=== PATIENT | male | born 1995 | race Caucasian/White ===

== ENCOUNTER 2020-09-06 23:53 | Inpatient (IN) | payer MEDICAID, SELFPAY ==
[~2020-09-06] VITALS: Ht 193 cm; Wt 105.7 kg
[~2020-09-06 23:53] MED LIST: DOXY100T2 PO
[2020-09-06 23:58] VITALS: BP_SYST 148
--- NOTE | 2020-09-07 | NUR ---
Patient to ER bed 4 to gown for evaluation. Side rails up.
--- NOTE | 2020-09-07 00:01 | NUR ---
Patient came with family. C/O abdominal pain, x today. Patient have abdominal pain 3 hours ago, on and off, vomitting. Hx Bowel Obstruction x 2 years ago (per patient). A/O,X4, lower abdominal pain, nausea, pain rate 8/10.
--- NOTE | 2020-09-07 00:11 | NUR ---
ER Dr. Hawkins at bedside examining patient.
[2020-09-07] MEDS ORDERED: NACL 0.9% 1,000 ML IV ONE (00:30)
[2020-09-07] MEDS ORDERED: MORPHINE 4 MG/ML INJ. SYRINGE IVP ONE (00:30)
[2020-09-07] MEDS ORDERED: MORPHINE 4 MG/ML INJ. SYRINGE ONE (01:02)
[2020-09-07 01:09] LABS: BILIRUBIN,URINE NEGATIVE (NEGATIVE); BLOOD, URINE NEGATIVE (NEGATIVE); CLARITY/URINE CLEAR (CLEAR); COLOR,URINE YELLOW (YELLOW); GLUCOSE,URINE NEGATIVE (NEGATIVE); KETONES,URINE NEGATIVE (NEGATIVE); LEUKOCYTE ESTERASE ,URINE NEGATIVE (NEGATIVE); NITRITE, URINE NEGATIVE (NEGATIVE); PROTEIN URINE NEGATIVE (NEGATIVE); UROBILINOGEN,URINE 0.2 (0.2-1.0)
[2020-09-07 01:29] LABS: CALCIUM 9.2 mg/dL (8.4-11.0); CREATININE 0.85 mg/dL (0.55-1.30); POTASSIUM 4.4 mmol/L (3.5-5.1)
[2020-09-07 01:35] LABS: ALBUMIN 4.1 g/dL (3.4-4.8); HEMATOCRIT 45.8 % (36-54); HEMOGLOBIN 15.3 g/dL (14.0-18.0); MEAN CORPUSCULAR HEMOGLOBIN 30 pg (27-31); MEAN CORPUSCULAR HGB CONC 33 % (32-36); MEAN CORPUSCULAR VOLUME 89 fL (79.0-98.0); NEUTROPHILS % (AUTO) 52.6 % (40.0-70.0); PLATELET COUNT (AUTO) 245 K/uL (130-430); RED BLOOD CELL COUNT(AUTO) 5.13 MIL/uL (4.2-6.2); RED CELL DISTRIBUTION WIDTH 13.5 % (9.0-15.0); TOTAL BILIRUBIN 0.2 mg/dL (0.0-1.0)
[2020-09-07 01:36] LABS: BASOPHILS # (AUTO) 0.1 K/uL (0.0-0.2); BASOPHILS % (AUTO) 1.1 % (0.0-2.0); EOSINOPHILS # (AUTO) 0.2 K/uL (0.0-0.4); EOSINOPHILS % (AUTO) 1.4 % (0.0-4.0); LYMPHOCYTES # (AUTO) 4.4 K/uL (1.0-5.5); LYMPHOCYTES % (AUTO) 36.7 % (20.5-51.5); MONOCYTES % (AUTO) 8.2 % (1.7-9.3); NEUTROPHILS # (AUTO) 6.3 K/uL (1.8-7.7)
[2020-09-07] MEDS ORDERED: MORPHINE 2 MG/ML INJ. SYRINGE IVP PRN (02:15)
[2020-09-07] MEDS ORDERED: ONDANSETRON HCL 4 MG/2 ML VIAL IVP PRN (02:15)
[2020-09-07] MEDS ORDERED: LR 1,000 ML IV ONE (02:15)
[2020-09-07] MEDS ORDERED: PIPERACILLIN/TAZO 3.375 GM in NS 50 ML IV ONE (02:15)
--- NOTE | 2020-09-07 02:29 | NUR ---
Swabs COVID-19 and send to lab.
[2020-09-07] MEDS ORDERED: PIPERACILLIN/TAZOBACTAM 3.375 GM/VIAL (ZOSYN) IV ONE (02:32)
--- NOTE | 2020-09-07 02:58 | NUR ---
Patient resting quietly. No acute distress noted. Vital signs within normal range.
--- NOTE | 2020-09-07 03:15 | NUR ---
CONSULTATION PAGED/CALLED Reason for Consultation: SMALL BOWEL OBSTRUCTION Person Who was Notified: ER SPOKE WITH DR WILLS Consulting Physician: DR CLARKE Game Protector Specialty: Ordering Physician: NICO
--- NOTE | 2020-09-07 03:18 | NUR ---
Patient will be admitted to care of Dr. Velazco. Admitted to M/S unit. Will go to room 108C. Belongings list completed. Complete and up to date summary report printed. SBAR report to be given at bedside with opportunity for questions.
[2020-09-07 03:24] VITALS: BP_SYST 132
--- NOTE | 2020-09-07 03:24 | NUR ---
ADMISSION NOTE Received patient from ER via gurney. Patient admitted with diagnosis of ABDOMINAL PAIN. Patient is awake, alert, oriented X 4. Patient oriented to hospital room, call light, toileting, pain management and safety-teach back done. Patient informed that OTIS will be HIS nurse and that their room number is 108C. Personal belongings checked and Belongings List documented. Call light within reach.
--- NOTE | 2020-09-07 03:50 | NUR ---
INITIAL NOTE PATIENT IS STABLE AND LAYING IN BED. PATIENT IS SLEEPY AT THIS TIME. PATIENT EDUCATED SURGICAL SPECIALIST LIGHT. PATIENT SUCCESSFULLY DEMONSTRATES USAGE OF CALL LIGHT. BED IS LOCKED AND LOWEST POSITION. PATIENT EDUCATED ON BED ALARM, PT REFUSED. FALL, SAFETY, ASPIRATION, AND RESPIRATORY PRECAUTIONS WILL BE IN PLACE THROUGHOUT THE SHIFT. PLAN OF CARE IS DISCUSSED WITH PATIENT.
--- NOTE | 2020-09-07 04:00 | NUR ---
PT IS STABLE AND SLEEPING IN BED. NO S/S OF VOMITING NOTED. NO S/S OF RESPIRATORY DISTRESS NOTED. CALL LIGHT IN REACH.
--- NOTE | 2020-09-07 06:47 | NUR ---
CLOSING NOTE PATIENT IS STABLE AND RESTING IN BED. NO S/S OF RESPIRATORY DISTRESS NOTED. CALL LIGHT IN REACH. BED IS LOCKED, ALARMED, AND AT THE LOWEST POSITION. FALL, SAFETY, ASPIRATION, AND RESPIRATORY PRECAUTIONS HAS BEEN IN PLACE THROUGHOUT THE SHIFT. NO NG TUBE NOTED AT ADMISSION, ORDERED FROM ER, MADE CHARGE NURSE AWARE. INFORMED HER THAT NO S/S OF VOMITING OR NAUSEA NOTED. WILL ENDORSE TO AM NURSE.
[2020-09-07] MEDS ORDERED: MORPHINE 2 MG/ML INJ. SYRINGE ONE ×2 (08:14→13:57)
--- NOTE | 2020-09-07 08:35 | NUR ---
IN POSITION, GROANED AND MOANED, BUT NOT PUT CALL LIGHT ON, BP AT THIS TIME 151/71 WITH HR 67, " IN LOTS OF PAIN, RIGHT HERE, MSO4 2MG IVP GIVEN FOR EPIGASTRIC PAIN
[2020-09-07 08:38] VITALS: BP_SYST 151
--- NOTE | 2020-09-07 09:32 | NUR ---
APPEARED QUIET AFTER MORHPINE GIVEN, ON BEDRST, REMAINS NPO WITH IVF RUNNING CONTINUOUSLY AT 125CC /HR
[2020-09-07 11:31] VITALS: BP_SYST 114
--- NOTE | 2020-09-07 11:42 | NUR ---
AGAIN CHECKED ON HIM, REFERRING TO HIS EPIGASTRIC PAIN, " BEARABLE NOW, NO NEEDS FOR PAIN MED"
--- NOTE | 2020-09-07 16:30 | NUR ---
AT 1400, CLAIMED HE VOMITTED IN THE BATHROOM, " NOTHING BUT LIQUID, AUTHOR DID NOT SEE VOMITUS. COMPLAINED OF EPIGASTRIC PAIN, BOTH MORPHINE 1MG AND ZOFRAN IVP GIVEN AT THIS TIME MADE CLEAR TO HIM, IF HE CONTINUES TO VOMIT , NGT WILL BE INSERTED, REFUSED .
--- NOTE | 2020-09-07 20:30 | NUR ---
BOWEL MOVEMENT PATIENT HAS A SMALL PEBBLE LIKE BOWEL MOVEMENT. NO COMPLAINTS OF DISCOMFORT AT THIS TIME. WILL CONTINUE TO MONITOR.
--- NOTE | 2020-09-08 01:00 | NUR ---
BOWEL MOVEMENT PATIENT HAS MODERATE FIRM BOWEL MOVEMENT, PATIENT STATES HIS ABDOMEN FEELS BETTER AFTER PASSING THIS BOWEL MOVEMENT. WILL CONTINUE TO MONITOR.
[2020-09-08 01:02] VITALS: BP_SYST 118
--- NOTE | 2020-09-08 04:30 | NUR ---
BOWEL MOVEMENT PATIENT PASSES A MODERATE AMOUNT OF SOFT BROWN STOOL. ABDOMEN SOFT, NONDISTENDED,ACTIVE BOWEL SOUNDS NOTED. WILL CONTINUE TO MONITOR.
--- NOTE | 2020-09-08 06:07 | NUR ---
CLOSING NOTE PATIENT SLEEPING IN BED NO SIGNS OF DISTRESS NOTED. RESPIRATIONS EVEN AND UNLABORED ON ROOM AIR. IVF RUNNING, PATIENT TOLERATING WELL. IV SITE REMAINS PATENT AND INTACT, WITH NO SIGNS OF INFILTRATION NOTED. SAFETY MEASURES REMAIN IN PLACE. BED LOCKED IN LOW POSITION WITH CALL LIGHT IN REACH. WILL CONTINUE TO MONITOR UNTIL ENDORSED TO AM NURSE.
[2020-09-08 07:55] LABS: BASOPHILS % (AUTO) 0.3 % (0.0-2.0); EOSINOPHILS # (AUTO) 0.1 K/uL (0.0-0.4); EOSINOPHILS % (AUTO) 0.8 % (0.0-4.0); HEMATOCRIT 42.5 % (36-54); HEMOGLOBIN 14.6 g/dL (14.0-18.0); LYMPHOCYTES # (AUTO) 2.7 K/uL (1.0-5.5); LYMPHOCYTES % (AUTO) 28.3 % (20.5-51.5); MEAN CORPUSCULAR HEMOGLOBIN 30 pg (27-31); MEAN CORPUSCULAR HGB CONC 34 % (32-36); MEAN CORPUSCULAR VOLUME 88 fL (79.0-98.0); MONOCYTES # (AUTO) 1.1 K/uL (0.0-1.0); MONOCYTES % (AUTO) 11.1 % (1.7-9.3); NEUTROPHILS # (AUTO) 5.8 K/uL (1.8-7.7); NEUTROPHILS % (AUTO) 59.5 % (40.0-70.0); PLATELET COUNT (AUTO) 228 K/uL (130-430); RED BLOOD CELL COUNT(AUTO) 4.81 MIL/uL (4.2-6.2); RED CELL DISTRIBUTION WIDTH 13.7 % (9.0-15.0); WHITE BLOOD COUNT (AUTO) 9.7 K/uL (4.8-10.8)
[2020-09-08 08:45] LABS: CALCIUM 8.4 mg/dL (8.4-11.0); CREATININE 0.88 mg/dL (0.55-1.30); POTASSIUM 3.6 mmol/L (3.5-5.1)
[2020-09-08 09:46] VITALS: BP_SYST 124
--- NOTE | 2020-09-08 11:46 | NUR ---
reported patient had bmx3 last nite, " felt much better this morning", denied any abdominal pain, now asking for food. will start him soft diet this lunch.
[2020-09-08 12:04] VITALS: BP_SYST 137
[2020-09-08 13:58] VITALS: BP_SYST 144
--- NOTE | 2020-09-08 14:08 | NUR ---
APPEARED TO TOLERATE SOFT DIET VERY WELL, ANXIOUS TO GO HOME, SEEN BY DR CLARKE, FROM THIS SURGERY POINT OF VIEW, CLEARED FOR DISCHARGE. DISCHARGE ORDER WRITTEN BY ATTENDING, PATIENT IS DISCHARGED TO HOME, TO FOLLOW UP WITH DR CLARKE X 1WEEK. ALERT, ORIENTED, DENIED ABDOMINAL PAIN.
== END 2020-09-08 14:15 | disposition home or self-care (01) | DRG 390 ==
LOC: SED 23:53 → SMU 09-07 02:12
PROVIDERS: ADMIT Internal Medicine; ATTEND Internal Medicine
PROC: 0D9670Z Drainage of Stomach with Drainage Device, Via Natural or Artificial Opening (ICD-10-PCS; principal; 2020-09-07)
DX: K56.609 Unspecified intestinal obstruction, unspecified as to partial versus complete obstruction (principal); F10.10 Alcohol abuse, uncomplicated; Z90.81 Acquired absence of spleen; Z79.899 Other long term (current) drug therapy; Z20.822 Contact with and (suspected) exposure to COVID-19
CPT/HCPCS: 36415; 74021; 76376; 80048; 80053; 81003; 83605; 83690-TC; 85025; 96361; 96365; 96375; J2270; J2405; J2543